=== PATIENT | female | born 1950 | race Asian ===

== ENCOUNTER 2021-12-29 16:33 | Emergency (ER) | payer OTHER ==
[2021-12-29 17:11] VITALS: TEMP 98.5; BMI 31.6
[2021-12-29] MEDS ORDERED: BEBTELOVIMAB (EUA) 175 MG/2 ML VIAL IVPUSH ONE (17:50)
[2021-12-29 20:20] VITALS: BP 138/81; PULSE 72
== END 2021-12-29 20:21 | disposition home or self-care (01) ==
LOC: JER 16:33
PROC: 3E033GC Introduction of Other Therapeutic Substance into Peripheral Vein, Percutaneous Approach (ICD-10-PCS; principal; 2021-12-29)
DX: U07.1 COVID-19 (principal)
CPT/HCPCS: 96374; 99284-25; M0222; Q0222